=== PATIENT | female | born 1990 ===

== ENCOUNTER 2016-11-07 21:38 | Emergency (ER) | payer BC ==
[2016-11-07 21:48] VITALS: BP 132/91; PULSE 97; RESP 16; TEMP 98.5; O2SAT 100
--- NOTE | 2016-11-07 22:21 | ED PDOC ---
HPI: Skin/Bite Injury Time Seen by Provider: 11/07/16 22:03 Chief Complaint (Nursing): Abnormal Skin Integrity Chief Complaint (Provider): Rash - Itchy History Per: Patient History/Exam Limitations: no limitations Onset/Duration Of Symptoms: Days Current Symptoms Are (Timing): Still Present Quality Of Symptoms: Itching Severity: Moderate Additional Complaint(s): Pt reports diffuse itchy rash for 4 days. PT on second day of medrol dose pack and has a new spot today. Pt states it was much worse yesterday and the day before. Past Medical History Reviewed: Historical Data, Nursing Documentation, Vital Signs Vital Signs: Last Vital Signs Temp 98.5 F 11/07/16 21:44 Pulse 97 H 11/07/16 21:44 Resp 16 11/07/16 21:44 BP 132/91 H 11/07/16 21:44 Pulse Ox 100 11/07/16 21:44 - Medical History PMH: No Chronic Diseases - Surgical History Surgical History: No Surg Hx - Family History Family History: States: No Known Family Hx - Living Arrangements Living Arrangements: With Family - Social History Current smoker - smoking cessation education provided: No Alcohol: None Drugs: Denies - Home Medications Home Medications: Ambulatory Orders Medication Instructions Recorded Epinephrine [Epipen] 0.3 mg IJ ONCE PRN #1 [email or web address] 11/07/16 - Allergies Allergies/Adverse Reactions: Allergies Allergy/AdvReac Type Severity Reaction Status Date / Time No Known Allergies Allergy Verified 11/07/16 21:44 Review of Systems ROS Statement: Except As Marked, All Systems Reviewed And Found Negative Constitutional: Negative for: Fever, Chills Skin: Positive for: Rash Physical Exam - Reviewed Nursing Documentation Reviewed: Yes Vital Signs Reviewed: Yes - Physical Exam Appears: Positive for: Well, Non-toxic, No Acute Distress Head Exam: Positive for: ATRAUMATIC, NORMAL INSPECTION, NORMOCEPHALIC Skin: Positive for: Warm, Rash (LEft shoulder, irregular shap raised with defined border). Negative for: Normal Color Eye Exam: Positive for: Normal appearance ENT: Positive for: Normal ENT Inspection Neck: Positive for: Normal, Painless ROM Respiratory: Negative for: Accessory Muscle Use, Respiratory Distress Gastrointestinal/Abdominal: Positive for: Normal Exam, Bowel Sounds, Soft Back: Positive for: Normal Inspection Extremity: Positive for: Normal ROM Neurologic/Psych: Positive for: Alert, Oriented - ECG O2 Sat by Pulse Oximetry: 100 Medical Decision Making Medical Decision Making: Continue steroids. Discussed when to take allergy medications vs epipen Disposition - Clinical Impression Clinical Impression: Urticaria - Patient ED Disposition Is Patient to be Admitted: No - Disposition Disposition: Routine/Home Disposition Time: 22:19 Condition: GOOD Additional Instructions: Please follow-up with an tar pot worker. Prescriptions: Epinephrine [Epipen] 0.3 mg IJ ONCE PRN #1 [email or web address].injct PRN Reason: Anaphylaxis Instructions: Urticaria (ED)
== END 2016-11-07 23:57 | disposition home or self-care (01) ==
LOC: H.ER 21:38
DX: L50.9 Urticaria, unspecified (principal)